=== PATIENT | male | born 1980 | race Hispanic/Latino ===

== ENCOUNTER 2018-02-01 15:29 | Inpatient (IN) | payer OTHER ==
[~2018-02-01] VITALS: Ht 177.8 cm; Wt 86.2 kg
[2018-02-01] MEDS ORDERED: SODIUM CHLORIDE 0.9% 1000ML 2,000 ML IV ONE (16:47)
[2018-02-01] MEDS ORDERED: ONDANSETRON HCL 4 MG/2 ML VIAL ONE (16:47)
[2018-02-01 17:01] LABS: APPEARANCE,URINE Cloudy (CLEAR); BILIRUBIN,URINE Negative (NEGATIVE); COLOR,URINE Dark Yellow (YELLOW); GLUCOSE, URINE (UA) Negative (NEGATIVE); KETONES,URINE 40 mg/dL (NEGATIVE); LEUKOCYTE ESTERASE ,URINE Negative (NEGATIVE); NITRATE,URINE Negative (NEGATIVE); OCCULT BLOOD,URINE Negative (NEGATIVE); PROTEIN,URINE Negative (NEGATIVE)
[2018-02-01 17:03] LABS: BASOPHILS % (AUTO) 0.7 % (0.0-5.0); EOSINOPHILS % (AUTO) 2.9 % (0.0-8.0); HEMATOCRIT 48.3 % (42-54); LYMPHOCYTES % (AUTO) 11.7 % (21.0-51.0); MEAN CORPUSCULAR HEMOGLOBIN 28.9 pg (27.0-33.0); MEAN CORPUSCULAR HGB CONC 33.8 g/dL (32.0-36.0); MEAN CORPUSCULAR VOLUME 85.5 fL (79-99); MONOCYTES % (AUTO) 9.2 % (3.0-13.0); NEUTROPHILS % (AUTO) 75.5 % (40.0-77.0); NUCLEATED RED BLOOD CELLS 0.1 % (0.0-0.19); PLATELET COUNT (AUTO) 127 K/uL (130-400); RED BLOOD CELL COUNT(AUTO) 5.65 MIL/uL (4.50-6.20); RED CELL DISTRIBUTION WIDTH 13.2 % (11.0-15.5); WHITE BLOOD COUNT (AUTO) 7.1 K/uL (4.8-10.8)
[2018-02-01 17:14] LABS: CREATININE 1.2 mg/dL (0.5-1.5)
[2018-02-01 17:19] LABS: ALBUMIN 4.2 g/dL (3.5-5.0); BILIRUBIN,TOTAL 0.7 mg/dL (0.2-1.0); TOTAL PROTEIN, SERUM 8.4 g/dL (6.0-8.3)
[2018-02-01 17:27] LABS: BACTERIA,URINE Few /HPF (None Seen); MUCUS,URINE Many LPF (None Seen); RBC,URINE None Seen /HPF (0-1); SQUAMOUS EPITHELIAL CELL,UR None Seen /HPF (0-2); WBC,URINE 0-1 /HPF (0-1)
[2018-02-01] MEDS ORDERED: ACETAMINOPHEN EXTRA STRENGTH 500 MG TABLET ONE (17:27)
[2018-02-01] MEDS ORDERED: IOHEXOL-350 75 ML VIAL IV ONE (18:01)
[2018-02-01] MEDS ORDERED: ZOSYN 3.375GM+NS 50ML 50 ML IV ONE (20:04)
[2018-02-01] MEDS ORDERED: SODIUM CHLORIDE 0.9% 100 ML IV ONE (20:05)
[2018-02-01] MEDS ORDERED: SODIUM CHLORIDE 0.9% 1000ML 1,000 ML IV SCH (20:19)
[2018-02-01] MEDS ORDERED: ACETAMINOPHEN 325 MG TAB PO PRN (20:30)
[2018-02-01] MEDS ORDERED: ONDANSETRON HCL 4 MG/2 ML VIAL IV PRN (20:30)
[2018-02-01 20:45] VITALS: BP 122/68
[2018-02-01] MEDS: ZOSYN 3.375GM+NS 50ML 50 ML IV SCH (21:00)
[2018-02-01 21:52] LABS: ALBUMIN 3.6 g/dL (3.5-5.0); BILIRUBIN,TOTAL 0.7 mg/dL (0.2-1.0); CREATININE 1.1 mg/dL (0.5-1.5); POTASSIUM 3.5 mmol/L (3.5-5.1); TOTAL PROTEIN, SERUM 7.2 g/dL (6.0-8.3)
[2018-02-01] MEDS: MORPHINE SULFATE 2 MG/ML 1ML SYG IV PRN (22:03)
[2018-02-02 00:30] VITALS: BP 145/76
[2018-02-02] MEDS: MORPHINE SULFATE 2 MG/ML 1ML SYG IV PRN ×2 (03:16→09:43)
[2018-02-02 04:00] VITALS: BP 113/63
[2018-02-02] MEDS: ZOSYN 3.375GM+NS 50ML 50 ML IV SCH ×3 (04:15→21:14)
[2018-02-02 04:29] LABS: BASOPHILS % (AUTO) 0.7 % (0.0-5.0); EOSINOPHILS % (AUTO) 0.6 % (0.0-8.0); HEMATOCRIT 41.8 % (42-54); LYMPHOCYTES % (AUTO) 9.7 % (21.0-51.0); MEAN CORPUSCULAR HEMOGLOBIN 28.4 pg (27.0-33.0); MEAN CORPUSCULAR HGB CONC 33.6 g/dL (32.0-36.0); MEAN CORPUSCULAR VOLUME 84.5 fL (79-99); MONOCYTES % (AUTO) 14.8 % (3.0-13.0); NEUTROPHILS % (AUTO) 74.2 % (40.0-77.0); RED BLOOD CELL COUNT(AUTO) 4.94 MIL/uL (4.50-6.20); RED CELL DISTRIBUTION WIDTH 13.1 % (11.0-15.5); WHITE BLOOD COUNT (AUTO) 4.7 K/uL (4.8-10.8)
[2018-02-02 04:55] LABS: PLATELET COUNT (AUTO) 96 K/uL (130-400)
[2018-02-02] MEDS: NS-20 MEQ KCL 1000ML 1,000 ML IV SCH ×2 (11:24→18:45)
[2018-02-02 12:27] VITALS: BP 120/68
[2018-02-02 16:44] VITALS: BP 133/84
[2018-02-02 20:06] VITALS: BP 136/69
[2018-02-02] MEDS: FAMOTIDINE 20MG TAB 20 MG TAB PO SCH (21:15)
[2018-02-02 23:59] VITALS: BP 122/72
[2018-02-03] MEDS: NS-20 MEQ KCL 1000ML 1,000 ML IV SCH (03:22)
[2018-02-03 04:52] VITALS: BP 102/59
[2018-02-03 05:43] LABS: INR 1.08 (0.85-1.15); PARTIAL THROMBOPLASTIN TIME 35.4 SEC (26.3-35.5); PROTHROMBIN TIME 11.3 SEC (9.6-11.6)
[2018-02-03 05:47] LABS: BASOPHILS % (AUTO) 0.7 % (0.0-5.0); EOSINOPHILS % (AUTO) 1.9 % (0.0-8.0); HEMATOCRIT 42.2 % (42-54); LYMPHOCYTES % (AUTO) 46.6 % (21.0-51.0); MEAN CORPUSCULAR HEMOGLOBIN 28.8 pg (27.0-33.0); MEAN CORPUSCULAR HGB CONC 34.2 g/dL (32.0-36.0); MEAN CORPUSCULAR VOLUME 84.1 fL (79-99); MONOCYTES % (AUTO) 16.3 % (3.0-13.0); NEUTROPHILS % (AUTO) 34.5 % (40.0-77.0); PLATELET COUNT (AUTO) 99 K/uL (130-400); RED BLOOD CELL COUNT(AUTO) 5.02 MIL/uL (4.50-6.20); RED CELL DISTRIBUTION WIDTH 13.2 % (11.0-15.5); WHITE BLOOD COUNT (AUTO) 4.2 K/uL (4.8-10.8)
[2018-02-03] MEDS: ZOSYN 3.375GM+NS 50ML 50 ML IV SCH ×2 (05:47→12:49)
[2018-02-03 05:52] LABS: BILIRUBIN,TOTAL 0.4 mg/dL (0.2-1.0); CREATININE 1.2 mg/dL (0.5-1.5); POTASSIUM 3.2 mmol/L (3.5-5.1); TOTAL PROTEIN, SERUM 6.6 g/dL (6.0-8.3)
[2018-02-03 08:05] VITALS: BP 123/81
[2018-02-03] MEDS: FAMOTIDINE 20MG TAB 20 MG TAB PO SCH (08:16)
[2018-02-03] MEDS ORDERED: LEVOFLOXACIN 500 MG TABLET PO SCH (10:00)
[2018-02-03] MEDS ORDERED: METRONIDAZOLE 500 MG TABLET PO SCH (10:00)
[2018-02-03 11:22] VITALS: BP 116/69
[2018-02-03] MEDS ORDERED: POTASSIUM CHLORIDE 20 MEQ ERTAB PO ONE (11:30)
[2018-02-03] MEDS ORDERED: POTASSIUM CHLORIDE 20 MEQ ERTAB PO SCH (12:30)
[2018-02-03] MEDS ORDERED: SODIUM CHLORIDE 0.9% 50 ML IV ONE (12:36)
== END 2018-02-03 15:55 | disposition home or self-care (01) | DRG 395 ==
LOC: EDH 15:29 → OBSVTOIN 20:00 → EDBD 20:00 → EDHIP 20:00 → 4BH 20:21
PROVIDERS: ADMIT Hospitalist; ATTEND Hospitalist
DX: K35.80 Unspecified acute appendicitis (principal); K31.84 Gastroparesis; E87.6 Hypokalemia
CPT/HCPCS: 36415; 71045; 74177; 80053; 81001; 82550; 83605; 83690; 84132; 85025; 85610; 85730; 86140; 87040; 87088; J2405; J2543; J3480; J7030; Q2038; Q9967